=== PATIENT | male | born 1955 | race Caucasian/White ===

== ENCOUNTER → 2023-08-23 15:10 | Outpatient (CLI) | payer OTHER, SELFPAY ==
--- NOTE | 2023-08-23 15:12 | DI.CT.S_ITS ---
PROCEDURE: CT IVP A/P W/WO INDICATIONS: HEMATURIA TECHNIQUE: Optional 5 mm thick noncontrast images acquired from the diaphragm to the symphysis pubis. After the administration of intravenous contrast, 5 mm thick images acquired from the diaphragm to the symphysis pubis after a 10-minute delay. 2 mm thick coronal and sagittal reformats were then performed of the kidneys and ureters. For radiation dose reduction, the following was used: automated exposure control, adjustment of mA and/or kV according to patient size. COMPARISON: None. FINDINGS: Image quality: Excellent. Lung bases: Lung bases are clear. Heart size is normal. Urinary system: Both kidneys are normal in size a. There is a small burden of bilateral, punctate nonobstructing nephrolithiasis. Hydronephrosis of the left kidney, with hydroureter. No perinephric fat stranding. There is normal bilateral renal enhancement. There is a filling defect within the left renal pelvis, extending to the inferior and superior calices. Marked dilation of the bladder. Bladder is incompletely distended with contrast. Other solid organs: Liver is normal in size and enhancement. Gallbladder is contracted . Biliary system is non dilated. Pancreas enhances normally. Spleen is normal in size and enhancement. No adrenal nodules. Peritoneum and bowel: Bowel loops demonstrate normal wall thickness and caliber. No free fluid or air. Nodes and vessels: No retroperitoneal or mesenteric adenopathy by size criteria. Aorta and inferior vena cava are normal in size. Abdominal wall: Small umbilical hernia containing fat. Pelvis: No pathologic free pelvic fluid. Mild fat within the inguinal canals, left greater than right. Bones: Sclerosis of the inferior endplate of T12, without significant degenerative disc disease at this level. Multiple faint dense lesions within the pelvic bones. IMPRESSION: Filling defect within the left renal pelvis, with associated moderate hydronephrosis. Additionally, there is moderate hydroureter, with incomplete filling of the left ureter distal to the mass. Differential includes a distal obstruction, with upstream hydroureter and abnormal layering of contrast within the left renal pelvis, versus true transitional cell carcinoma within the left renal pelvis. Recommend urology referral for direct visualization. Marked dilation of the urinary bladder, suggestive of outlet obstruction. Suspected osseous metastatic disease. Findings could be from prostate cancer , given sclerosis, versus urothelial origin. Dictated by: Constantino Freeman M.D. on 08/23/2023 at 16:44 Approved by: Constantino Freeman M.D. on 08/23/2023 at 16:51
== END ==
PROVIDERS: Referring Provider Family Medicine; Visit Provider Family Medicine
DX: N13.30 Unspecified hydronephrosis (principal); R31.9 Hematuria, unspecified; M89.9 Disorder of bone, unspecified
CPT/HCPCS: 74178; Q9967

== ENCOUNTER → 2024-09-15 14:02 | Outpatient (CLI) | payer OTHER, SELFPAY ==
[2024-09-15 14:33] LABS: Hematocrit 23.6 % (41-53); Hemoglobin 7.6 g/dL (13.5-17.5); Mean Corpuscular HGB Conc 32.1 % (30-36); Mean Corpuscular Hemoglobin 25.2 PG (26-34); Mean Corpuscular Volume 78.3 fL (80-100); Platelet Count 391 X10^3/uL (150-400); Red Blood Cell Count 3.01 X10^6/uL (4.5-5.9); Red Cell Distribution Width 17.4 % (11.6-14.8); White Blood Cell Count 8.3 X10^3/uL (4.5-11.0)
[2024-09-15 14:39] LABS: Hemoglobin A1C% w Est Avg Glu 5.7 % (4.0-6.0)
[2024-09-15 14:50] LABS: Appearance Urine UA Cloudy; Color Urine UA YELLOW; Protein Urine UA TRACE (Negative); Specific Gravity Urine UA 1.005 (1.000-1.035); pH Urine UA 7.5 (4.5-8.0)
[2024-09-15 14:51] LABS: Bilirubin Urine UA Negative (NEGATIVE); Glucose Urine UA NEGATIVE (Negative); Ketones Urine UA NEGATIVE (NEGATIVE); Leukocyte Esterase Urine UA 4+ (NEGATIVE); Nitrite Urine UA NEGATIVE (Negative); Occult Blood Urine UA 2+ (Negative); Urine Volume 10mL (spun); Urobilinogen Urine UA Normal E.U./dL (0.2)
[2024-09-15 14:52] LABS: Bacteria Urine None Seen; Culture Indicated Urine Specimen Cultured; RBC Urine 5-10/HPF (0-5/HPF); Squamous Epithelial Cell Urine None Seen (0-5/HPF); WBC Urine >100/HPF (0-5/HPF)
[2024-09-15 15:00] LABS: Alanine Aminotransferase 10 IU/L (<50); Albumin 3.6 g/dL (3.5-5.0); Albumin Globulin Ratio 0.8 (1.0-2.8); Alkaline Phosphatase 106 U/L (38-126); Aspartate Aminotransferase 15 IU/L (17-59); BUN Creatinine Ratio 20.5 (6-22); Bilirubin Total 0.5 mg/dL (0.2-1.3); Blood Urea Nitrogen 72 mg/dL (9-20); Carbon Dioxide 17 mmol/L (22-32); Chloride 107 mmol/L (98-107); Cholesterol 148 mg/dL (140-199); Estimated Glomerular Filt Rate 18 mL/min (>60); Globulin 4.3 g/dL (1.7-4.1); Glucose 97 mg/dL (80-110); HDL Cholesterol 51 mg/dL (40-60); HEMOLYSIS < 15 (0-50); LDL Cholesterol Calculated 81 mg/dL (<100); Sodium 138 mmol/L (137-145); Total Protein 7.9 g/dL (6.3-8.2); Triglycerides 78 mg/dL (35-150)
[2024-09-15 15:02] LABS: Potassium 5.4 mmol/L (3.4-5.1)
[2024-09-15 16:10] LABS: Prostate Specific Antigen Scrn 657 ng/mL (0.1-4.0)
== END ==
PROVIDERS: PCP Family Medicine; Referring Provider Family Medicine; Visit Provider Family Medicine
DX: R29.898 Other symptoms and signs involving the musculoskeletal system (principal); R06.09 Other forms of dyspnea; Z12.5 Encounter for screening for malignant neoplasm of prostate; N39.0 Urinary tract infection, site not specified
CPT/HCPCS: 36415; 80053; 80061; 81001; 83036; 85027; 87086; G0103

== ENCOUNTER 2024-09-15 16:44 | Emergency (ER) | payer OTHER, SELFPAY ==
[2024-09-15 16:58] VITALS: BP 193/93; PULSE 67; RESP 14; TEMP 36.5; O2SAT 100; BMI 25.7
[2024-09-15 17:46] LABS: Add Manual Diff / Slide Review NO; Basophils Absolute Auto 100 /uL (0-100); Basophils Percent Auto 1.2 % (0-2); Eosinophils Absolute Auto 100 /uL (0-450); Hematocrit 24.4 % (41-53); Hemoglobin 7.8 g/dL (13.5-17.5); Lymphocytes Absolute Auto 900 /uL (1100-4500); Lymphocytes Percent Auto 10.1 % (25-40); Mean Corpuscular Volume 78.4 fL (80-100); Monocytes Absolute Auto 700 /uL (0-900); Monocytes Percent Auto 8.3 % (3-14); Neutrophils Absolute Auto 7000 /uL (1500-7000); Neutrophils Percent Auto 79.4 % (50-75); Platelet Count 413 X10^3/uL (150-400); Red Blood Cell Count 3.12 X10^6/uL (4.5-5.9); Red Cell Distribution Width 17.2 % (11.6-14.8); White Blood Cell Count 8.8 X10^3/uL (4.5-11.0)
[2024-09-15 17:50] LABS: INR 1.2 (0.9-1.3); Prothrombin Time 13.2 SECONDS (9.4-12.5)
[2024-09-15 17:53] LABS: PTT Partial Thromboplastin Tim 37 SECONDS (25.1-36.5)
[2024-09-15 17:54] LABS: Alanine Aminotransferase 12 IU/L (<50); Albumin Globulin Ratio 0.8 (1.0-2.8); Alkaline Phosphatase 102 U/L (38-126); Aspartate Aminotransferase 15 IU/L (17-59); BUN Creatinine Ratio 18.1 (6-22); Bilirubin Total 0.4 mg/dL (0.2-1.3); Blood Urea Nitrogen 70 mg/dL (9-20); Carbon Dioxide 20 mmol/L (22-32); Chloride 106 mmol/L (98-107); Estimated Glomerular Filt Rate 16 mL/min (>60); Globulin 5.1 g/dL (1.7-4.1); Glucose 106 mg/dL (80-110); HEMOLYSIS < 15 (0-50); Potassium 4.6 mmol/L (3.4-5.1); Sodium 138 mmol/L (137-145); Total Protein 9.1 g/dL (6.3-8.2)
[2024-09-15 19:55] VITALS: BP 186/91; PULSE 60; RESP 18; O2SAT 100
[2024-09-15] MEDS: PANTOPRAZOLE 40 MG VIAL 80 MG IV (21:08)
--- NOTE | 2024-09-15 21:09 | ED.RECABL ---
HPI - Recheck/Abnormal Lab/Rx General Chief Complaint: Recheck/Abnormal Lab/Rx Stated Complaint: abnormal labs Time Seen by Provider: 09/15/24 21:00 Source: patient Mode of arrival: Ambulatory History of Present Illness HPI narrative: Patient is a 68-year-old male who had an initial visit with his new primary doctor within the past 24 hours. Had labs drawn and was told to come to the emergency department because his blood counts were low. He states he feels the same today as he was felt over the past several months/years. He does not occasionally have blood in his urine and was informed in the past that he needed to follow-up with urology but has not done so. No blood in his stool. No coughing. No abdominal pain. No chest pain. No shortness of breath. No fevers. Is not on anticoagulation. Related Data Home Medications Medication Instructions Recorded Confirmed No Known Home Medications 09/15/24 09/15/24 Allergies Allergy/AdvReac Type Severity Reaction Status Date / Time No Known Drug Allergies Allergy Verified 09/15/24 16:58 Review of Systems Review of Systems ROS Unobtainable: All systems reviewed & are unremarkable except as noted in HPI and below Patient History Social History Smoking Status: Former smoker Smoking Status: Former smoker alcohol intake frequency: holidays/special occasions only Substance Use Type: does not use Exam Initial Vital Signs Initial Vital Signs: Vital Signs Temperature 97.7 F 09/15/24 16:58 Pulse Rate 67 09/15/24 16:58 Respiratory Rate 14 09/15/24 16:58 Blood Pressure 193/93 H 09/15/24 16:58 Pulse Oximetry 100 09/15/24 16:58 Oxygen Delivery Method Room Air 09/15/24 16:58 Const General: cooperative, comfortable and No ill appearing HENKS Head: normal to inspection and normocephalic Resp Effort & Inspection: normal respiratory effort Auscultation: clear to auscultation bilaterally Cardio Rate: regular rate Rhythm: regular rhythm Skin General: no rashes or lesions noted Neuro General: patient alert, patient awake, patient oriented x3 and moves all extremities Extrem General: normal to inspection and capillary refill normal Course Orders Ordered: ED Orders 09/15/24 17:30 Complete Blood Count AUTO DIFF Stat Comprehensive Metabolic Panel Stat PTT Partial Thromboplastin Jose Stat Prothrombin Time INR Stat Type and Screen Stat Discontinued Medications Ondansetron HCl (Ondansetron 4 Mg/2 Ml Inj) 4 mg IV NOW PRN PRN Reason: Nausea And Vomiting Ondansetron HCl (Ondansetron 4 Mg Odt) 4 mg SL NOW PRN PRN Reason: Nausea And Vomiting Pantoprazole Sodium (Pantoprazole 40 Mg Vial) 80 mg IV NOW ONE Stop: 09/15/24 17:03 Last Admin: 09/15/24 21:08 Dose: 80 mg Documented By: HAROON Vital Signs Vital signs: Vital Signs - 8 hr 09/15/24 19:55 09/15/24 21:23 Pulse Rate 60 63 Respiratory Rate 18 17 Blood Pressure 186/91 H 190/94 H Pulse Oximetry 100 100 Oxygen Delivery Method Room Air Room Air MDM - Recheck/Abnormal Lab/Rx Lab Data Attestation: I reviewed the patient's lab results. 09/15/24 17:30 09/15/24 17:30 Labs: Lab Results 09/15/24 Range/Units 17:30 WBC 8.8 (4.5-11.0) X10^3/uL RBC 3.12 L (4.5-5.9) X10^6/uL Hgb 7.8 L (13.5-17.5) g/dL Hct 24.4 L (41-53) % MCV 78.4 L (80-100) fL MCH 25.0 L (26-34) PG MCHC 32.0 (30-36) % RDW 17.2 H (11.6-14.8) % Plt Count 413 H (150-400) X10^3/uL Neut % (Auto) 79.4 H (50-75) % Lymph % (Auto) 10.1 L (25-40) % [place] % (Auto) 8.3 (3-14) % Eos % (Auto) 1.0 L (2-4) % Baso % (Auto) 1.2 (0-2) % Neut # (Auto) 7000 (7865-8340) /uL Lymph # (Auto) 900 L (1374-8692) /uL [place] # (Auto) 700 (0-900) /uL Eos # (Auto) 100 (0-450) /uL Baso # (Auto) 100 (0-100) /uL PT 13.2 H (9.4-12.5) SECONDS INR 1.2 (0.9-1.3) APTT 37 H (25.1-36.5) SECONDS Sodium 138 (137-145) mmol/L Potassium 4.6 (3.4-5.1) mmol/L Chloride 106 (98-107) mmol/L Carbon Dioxide 20 L (22-32) mmol/L BUN 70 H (9-20) mg/dL Creatinine 3.86 H (0.66-1.25) mg/dL Estimated GFR 16 L (>60) mL/min BUN/Creatinine Ratio 18.1 (6-22) Glucose 106 (80-110) mg/dL Calcium 9.0 (8.4-10.2) mg/dL Total Bilirubin 0.4 (0.2-1.3) mg/dL AST 15 L (17-59) IU/L ALT 12 (<50) IU/L Alkaline Phosphatase 102 (38-126) U/L Total Protein 9.1 H (6.3-8.2) g/dL Albumin 4.0 (3.5-5.0) g/dL Globulin 5.1 H (1.7-4.1) g/dL Albumin/Globulin Ratio 0.8 L (1.0-2.8) Blood Type O Negative Antibody Screen Negative MDM Narrative Medical decision making narrative: Patient has no new symptoms. He was anemic but not of the point that would require blood transfusion. He was not hypotensive. Not lightheaded. Not short of breath. Not tachycardic. He reports he does occasionally have blood in his urine and I recommended that he talk with his primary doctor about a referral to see Urology. He has had a colonoscopy in the past but it was years ago and advised that he talk with his primary doctor about a referral to have a colonoscopy. No further workup required in the emergency department. Patient can follow up with primary doctor for further evaluation of his anemia. He was given return precautions. He expressed understanding and agreement. Discharge Plan Departure Patient Disposition: Home Clinical Impression: Anemia Instructions: Anemia Activity Restrictions/Additional Instructions: Recommend that you continue to take all of your medications as directed. I do recommend that you contact your primary doctor's office for a follow-up and to discuss the indications for further workup of your anemia. Return to the emergency department for new symptoms. Prescriptions: No Action No Known Home Medications Referrals: Luis Manuel Franco MD [Physician] - Selvin Lao DO [Primary Care Provider] - Stand Alone Forms: Patient Portal/API
[2024-09-15 21:23] VITALS: BP 190/94; PULSE 63; RESP 17; O2SAT 100
== END 2024-09-15 21:26 | disposition home or self-care (01) ==
PROVIDERS: Student in an Organized Health Care Education/Training Program; Emergency Provider Emergency Medicine; PCP Family Medicine
DX: D64.9 Anemia, unspecified (principal)
CPT/HCPCS: 36415; 80053; 80061; 81001; 83036; 85025; 85027; 85610; 85730; 86850; 86900; 86901; 87086; 96374; 99283; 99284; G0103; J2470

== ENCOUNTER → 2024-10-07 13:04 | Outpatient (CLI) | payer OTHER, SELFPAY ==
--- NOTE | 2024-10-07 13:05 | DI.CT.S_ITS ---
PROCEDURE: CT CHEST ABD PEL WO CON INDICATIONS: metastatic prostate cancer TECHNIQUE: After the administration of oral contrast, 5 mm thick sections acquired from the lung apices to the symphysis pubis. 5 mm thick coronal and sagittal reformats acquired, with additional 7 mm coronal MIP reformats through the lungs. For radiation dose reduction, the following was used: automated exposure control, adjustment of mA and/or kV according to patient size. COMPARISON: 08/23/2023 CT abdomen pelvis. FINDINGS: Image quality: Diagnostic. CHEST: Lower Neck: No enlarged lymph nodes. Thyroid: No thyroid nodules which require sonographic follow up, per consensus guidelines. Axillae: No enlarged lymph nodes. Chest Wall: Unremarkable. Bones: Scattered sclerotic osseous lesions are noted involving the ribs, femurs, iliac bones and spine. The largest lesion is noted measuring 3.7 cm in diameter at the inferior endplate of T12. Lungs and Pleura: No pneumothorax or pleural effusions. No consolidations. In the right upper lobe is a 4 mm solid nodule (series 3, image 78), a 7 mm nodule (series 3, image 96), a 2 mm nodule (series 3, image 96), a 4 mm nodule (series 3, image 107). Numerous additional small solid nodules are seen in the subpleural right upper, middle and right lower lobe, the largest of which measure 1 cm (series 3, image 214), 1 cm (series 3, image 274) and 1.4 cm (series 3, image 263). Within the left upper lobe is a 6 mm nodule (series 3, image 117), a 1.2 cm solid nodule and left lower lobe (series 3, image 141), a 9 mm left lower lobe solid nodule (series 3, image 207). Numerous additional small solid nodules are noted throughout the left upper and lower lobes. Heart: Heart size is normal. No pericardial effusion. Moderate three-vessel coronary artery calcification. Thoracic Vessels: The aorta and pulmonary arteries demonstrate normal size. Moderate scattered atheromatous calcification. Mediastinum and Jessica: No enlarged lymph nodes. Esophagus: No wall thickening. No hiatal hernia. ABDOMEN: Liver: No solid mass. Gallbladder: No radiopaque gallstones or wall thickening. Biliary ducts: No biliary dilation. Pancreas: No ductal dilation. Spleen: Size is within normal limits. Adrenal Glands: No adrenal nodules. Kidneys and Ureters: Moderate bilateral hydroureteronephrosis. No solid mass. No complex renal cystic lesion which requires follow up. Stomach and Bowel: Normal colonic caliber, without significant wall thickening. The stomach and small bowel appear normal. Peritoneum: No abnormal intraperitoneal fluid. No free air. Ventral Wall: Small fat containing periumbilical hernia. Abdominal Nodes: No retroperitoneal or mesenteric adenopathy by size criteria. Vessels: Aorta and inferior vena cava are normal in size. PELVIS: Pelvic Organs: The prostate measures 5.3 cm in diameter with a lobulated contour with internal calcification consistent with prostatomegaly. Small bilateral hydroceles. Bladder: The urinary bladder is markedly distended without wall thickening or abnormal intraluminal contents. Pelvic Nodes: No enlarged lymph nodes. Miscellaneous: No inguinal hernias are seen. IMPRESSION: Metastatic prostate cancer with obstructive uropathy secondary to prostatomegaly with massive distention of the urinary bladder and reflux resulting in moderate to severe bilateral hydroureteronephrosis. There is an interval increase in number and size of the numerous scattered Sclerotic bony metastasis are seen involving both the spine and appendicular skeleton since prior imaging on 08/23/2023. Dictated by: David Lowe M.D. on 10/07/2024 at 16:28 Approved by: David Lowe M.D. on 10/07/2024 at 17:03
== END ==
PROVIDERS: PCP Family Medicine; Referring Provider Family Medicine; Visit Provider Family Medicine
DX: C61 Malignant neoplasm of prostate (principal); C79.51 Secondary malignant neoplasm of bone; N13.30 Unspecified hydronephrosis; N32.89 Other specified disorders of bladder; I25.10 Atherosclerotic heart disease of native coronary artery without angina pectoris; K42.9 Umbilical hernia without obstruction or gangrene; N43.3 Hydrocele, unspecified; R91.8 Other nonspecific abnormal finding of lung field
CPT/HCPCS: 71250; 74176